=== PATIENT | male | born 1980 ===

== ENCOUNTER 2019-02-08 11:37 | Outpatient (CLI) | payer OTHER | END 2019-02-08 13:37 | disposition home or self-care (01) | LOC: ECT 11:37 | DX: F31.4 Bipolar disorder, current episode depressed, severe, without psychotic features (principal); E11.9 Type 2 diabetes mellitus without complications; F10.10 Alcohol abuse, uncomplicated; F32.9 Major depressive disorder, single episode, unspecified; Z91.5 Personal history of self-harm; Z79.899 Other long term (current) drug therapy; G81.90 Hemiplegia, unspecified affecting unspecified side ==

== ENCOUNTER 2019-02-24 04:53 | Outpatient (RCR) | payer OTHER ==
[~2019-02-24] VITALS: Ht 183.5 cm; Wt 106.1 kg
[2019-02-24] MEDS ORDERED: Succinylcholine 20mg/ml 10ml vial ONE (04:54)
[2019-02-24] MEDS ORDERED: Methohexital Sodium Syr 100mg/10ml IVP ONE (04:54)
[2019-02-24] MEDS ORDERED: NS 500ML ONE (04:54)
[2019-02-24] MEDS ORDERED: Midazolam 2mg/2ml Inj ONE (04:54)
[2019-02-24 08:28] VITALS: BP 147/93
[2019-02-24 08:45] VITALS: BP 157/86
[2019-02-24 08:50] VITALS: BP 165/86
[2019-02-24 08:55] VITALS: BP 158/119
[2019-02-24 09:00] VITALS: BP 184/96
[2019-02-24 09:31] VITALS: BP 147/93
[2019-02-27] MEDS ORDERED: Succinylcholine 20mg/ml 10ml vial ONE (06:00)
[2019-02-27] MEDS ORDERED: Midazolam 2mg/2ml Inj ONE (06:00)
[2019-02-27] MEDS ORDERED: NS 500ML ONE (06:00)
[2019-02-27] MEDS ORDERED: Methohexital Sodium Syr 100mg/10ml IVP ONE (06:00)
[2019-02-27 10:25] VITALS: BP 130/87
[2019-02-27 10:37] VITALS: BP 150/69
[2019-02-27 10:42] VITALS: BP 132/68
[2019-02-27 10:47] VITALS: BP 127/62
[2019-02-27 10:52] VITALS: BP 144/106
== END 2019-02-27 | disposition home or self-care (01) ==
LOC: ECT 04:53
DX: F31.4 Bipolar disorder, current episode depressed, severe, without psychotic features (principal); F10.10 Alcohol abuse, uncomplicated; E11.9 Type 2 diabetes mellitus without complications; G81.90 Hemiplegia, unspecified affecting unspecified side; G43.909 Migraine, unspecified, not intractable, without status migrainosus
CPT/HCPCS: 90870; J0330; J2250; J7040

== ENCOUNTER 2019-03-01 10:24 | Outpatient (RCR) | payer OTHER ==
[~2019-03-01] VITALS: Ht 182.9 cm; Wt 106.1 kg
[~2019-03-01 10:24] MED LIST: Ketorolac 30mg Inj ONE; Methohexital Sodium Syr 100mg/10ml IVP ONE; Midazolam 2mg/2ml Inj ONE; NS 500ML ONE; Succinylcholine 20mg/ml 10ml vial ONE
[2019-03-01] MEDS ORDERED: Methohexital Sodium Syr 100mg/10ml IVP ONE ×2 (10:25)
[2019-03-01] MEDS ORDERED: NS 500ML ONE ×2 (10:25)
[2019-03-01] MEDS ORDERED: Midazolam 2mg/2ml Inj ONE ×2 (10:25)
[2019-03-01] MEDS ORDERED: Succinylcholine 20mg/ml 10ml vial ONE ×2 (10:25)
[2019-03-01] MEDS ORDERED: Ketorolac 60mg Inj IM ONE ×2 (10:25)
[2019-03-01 10:29] VITALS: BP 138/94
[2019-03-01] MEDS ORDERED: Midazolam 2mg/2ml Inj IVP PRN (10:41)
[2019-03-01] MEDS ORDERED: Ketorolac 60mg Inj IM PRN (10:41)
[2019-03-01 10:42] VITALS: BP 132/75
[2019-03-01 10:47] VITALS: BP 151/63
[2019-03-01 10:52] VITALS: BP 148/79
[2019-03-01 10:57] VITALS: BP 131/79
--- NOTE | 2019-03-01 11:30 | NUR ---
Patient got agitated and very restless,getting up and down,trying to removed bp cuffs,electrodes and IV.Versed 2mg given at 10:53 as ordered with good result. Addendum: 03/02/19 at 0848 by VISH SANABRIA RN RN Patient got agitated and very restless,getting up and down,trying to removed bp cuffs,electrodes and IV.Versed 2mg given via IVP at 10:53 as ordered with good result.
[2019-03-03 08:20] VITALS: BP 135/92
[2019-03-03 08:35] VITALS: BP 148/75
[2019-03-03 08:40] VITALS: BP 137/70
[2019-03-03 08:45] VITALS: BP 137/67
[2019-03-03 08:50] VITALS: BP 138/81
[2019-03-03] MEDS ORDERED: Methohexital Sodium Syr 100mg/10ml IVP ONE (09:00)
[2019-03-03] MEDS ORDERED: Ketorolac 60mg Inj IM ONE (09:00)
[2019-03-03] MEDS ORDERED: Succinylcholine 20mg/ml 10ml vial ONE (09:00)
[2019-03-03] MEDS ORDERED: Midazolam 2mg/2ml Inj ONE (09:00)
[2019-03-03] MEDS ORDERED: NS 500ML ONE (09:00)
[2019-03-06 06:46] VITALS: BP 137/96
[2019-03-06 07:00] VITALS: BP 134/96
[2019-03-06 07:05] VITALS: BP 141/68
[2019-03-06 07:10] VITALS: BP 138/78
[2019-03-06 07:15] VITALS: BP 147/56
[2019-03-06] MEDS ORDERED: Midazolam 2mg/2ml Inj ONE (09:00)
[2019-03-06] MEDS ORDERED: Succinylcholine 20mg/ml 10ml vial ONE (09:00)
[2019-03-06] MEDS ORDERED: Methohexital Sodium Syr 100mg/10ml IVP ONE (09:00)
[2019-03-06] MEDS ORDERED: Ketorolac 60mg Inj IM ONE (09:00)
[2019-03-06] MEDS ORDERED: NS 500ML ONE (09:00)
[2019-03-08 08:02] VITALS: BP 147/97
[2019-03-08 08:15] VITALS: BP 137/76
[2019-03-08 08:20] VITALS: BP 141/80
[2019-03-08 08:25] VITALS: BP 143/68
[2019-03-08 08:30] VITALS: BP 141/64
[2019-03-08] MEDS ORDERED: Ketorolac 60mg Inj IM ONE (09:00)
[2019-03-08] MEDS ORDERED: Methohexital Sodium Syr 100mg/10ml IVP ONE (09:00)
[2019-03-08] MEDS ORDERED: Midazolam 2mg/2ml Inj ONE (09:00)
[2019-03-08] MEDS ORDERED: NS 500ML ONE (09:00)
[2019-03-08] MEDS ORDERED: Succinylcholine 20mg/ml 10ml vial ONE (09:00)
[2019-03-10 08:00] VITALS: BP 157/103
[2019-03-10 08:15] VITALS: BP 136/75
[2019-03-10 08:20] VITALS: BP 127/73
[2019-03-10 08:25] VITALS: BP 129/73
[2019-03-10 08:30] VITALS: BP 132/67
[2019-03-13 08:01] VITALS: BP 156/107
[2019-03-13 08:14] VITALS: BP 136/79
[2019-03-13 08:19] VITALS: BP 131/71
[2019-03-13 08:24] VITALS: BP 126/61
[2019-03-13 08:29] VITALS: BP 128/68
[2019-03-13] MEDS ORDERED: Ketorolac 60mg Inj IM ONE (09:00)
[2019-03-13] MEDS ORDERED: NS 500ML ONE (09:00)
[2019-03-13] MEDS ORDERED: Midazolam 2mg/2ml Inj ONE (09:00)
[2019-03-13] MEDS ORDERED: Succinylcholine 20mg/ml 10ml vial ONE (09:00)
[2019-03-13] MEDS ORDERED: Methohexital Sodium Syr 100mg/10ml IVP ONE (09:00)
[2019-03-20] MEDS ORDERED: Succinylcholine 20mg/ml 10ml vial ONE (06:00)
[2019-03-20] MEDS ORDERED: Methohexital Sodium Syr 100mg/10ml IVP ONE (06:00)
[2019-03-20] MEDS ORDERED: Ketorolac 30mg Inj ONE (06:00)
[2019-03-20] MEDS ORDERED: NS 500ML ONE (06:00)
[2019-03-20] MEDS ORDERED: Midazolam 2mg/2ml Inj ONE (06:00)
[2019-03-20 08:20] VITALS: BP 155/102
[2019-03-20 08:25] VITALS: BP 145/73
[2019-03-20 08:30] VITALS: BP 137/75
[2019-03-20 08:35] VITALS: BP 142/70
[2019-03-20 08:40] VITALS: BP 139/68
[2019-03-22] MEDS ORDERED: Succinylcholine 20mg/ml 10ml vial ONE (06:00)
[2019-03-22] MEDS ORDERED: Methohexital Sodium Syr 100mg/10ml IVP ONE (06:00)
[2019-03-22] MEDS ORDERED: Ketorolac 30mg Inj ONE (06:00)
[2019-03-22] MEDS ORDERED: Midazolam 2mg/2ml Inj ONE (06:00)
[2019-03-22] MEDS ORDERED: NS 500ML ONE (06:00)
[2019-03-22 08:07] VITALS: BP 148/88
[2019-03-22 08:31] VITALS: BP 130/88
[2019-03-22 08:36] VITALS: BP 135/74
[2019-03-22 08:41] VITALS: BP 133/73
[2019-03-22 08:46] VITALS: BP 135/70
[2019-03-24 08:07] VITALS: BP 136/90
[2019-03-24 08:19] VITALS: BP 156/74
[2019-03-24 08:24] VITALS: BP 146/75
[2019-03-24 08:29] VITALS: BP 141/73
[2019-03-24 08:34] VITALS: BP 134/62
[2019-03-27] MEDS ORDERED: Ketorolac 30mg Inj ONE (06:00)
[2019-03-27] MEDS ORDERED: NS 500ML ONE (06:00)
[2019-03-27] MEDS ORDERED: Methohexital Sodium Syr 100mg/10ml IVP ONE (06:00)
[2019-03-27] MEDS ORDERED: Succinylcholine 20mg/ml 10ml vial ONE (06:00)
[2019-03-27] MEDS ORDERED: Midazolam 2mg/2ml Inj ONE (06:00)
[2019-03-27 08:13] VITALS: BP 147/92
[2019-03-27 08:30] VITALS: BP 132/84
[2019-03-27 08:35] VITALS: BP 128/71
[2019-03-27 08:40] VITALS: BP 123/68
[2019-03-27 08:45] VITALS: BP 127/68
== END 2019-03-30 | disposition home or self-care (01) ==
LOC: ECT 10:24
DX: F31.4 Bipolar disorder, current episode depressed, severe, without psychotic features (principal)
CPT/HCPCS: 90870; J0330; J1885; J2250; J7040